=== PATIENT | male | born 1975 | race African-American/Black ===

== ENCOUNTER 2017-02-08 18:10 | Emergency (ER) | payer OTHER, BC ==
[2017-02-08 18:27] VITALS: BP 133/93; PULSE 76; TEMP 97.8; BMI 23.0
[2017-02-08] MEDS ORDERED: IBUPROFEN 600 MG TABLET (FP) PO ONE ×2 (18:59→19:01)
--- NOTE | 2017-02-08 19:04 | PDOC ---
History of Present Illness - General Chief Complaint: Pain, Acute Stated Complaint: FOOT INJURY Time Seen by Provider: 02/08/17 18:52 History Source: Patient Exam Limitations: No Limitations - History of Present Illness Initial Comments: Patient came for evaluation of swelling and tender lump to the plantar aspect of his left foot. 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 wears supportive shoes and is uncertain as to cause Occurred: reports: last week Severity: reports: mild Pain Location: reports: lower extremity (left plantar foot ) Method of Injury: Yes: unknown Modifying Factors: improves with: None Past History - Past Medical History Allergies/Adverse Reactions: Allergies Allergy/AdvReac Type Severity Reaction Status Date / Time No Known Allergies Allergy Verified 02/08/17 18:23 Home Medications: Ambulatory Orders Aspirin [ASA -] 325 mg PO ONCE 02/08/17 COPD: No DVT: No - Immunization History Immunization Up to Date: Yes - Suicide/Smoking/Psychosocial Hx Smoking History: Current some day smoker Number of Cigarettes Smoked Daily: 1 Cigars Per Day: 3 Information on smoking cessation initiated: No Hx Alcohol Use: No Drug/Substance Use Hx: No Substance Use Type: Alcohol *Physical Exam - Vital Signs Last Vital Signs Temp Pulse Resp BP Pulse Ox 97.8 F 76 16 133/93 99 02/08/17 18:23 02/08/17 18:23 02/08/17 18:23 02/08/17 18:23 02/08/17 18:23 - Physical Exam General Appearance: Yes: Nourished, Appropriately Dressed, Apparent Distress, Mild Distress HEENT: positive: MARY CARMEN, Normal ENT Inspection, TMs Normal, Pharynx Normal Musculoskeletal: positive: Normal Inspection. negative: Vertebral Tenderness Extremity: positive: Normal Capillary Refill, Other (tender soft 1 cm mass to the plantar aspect of left midfoot along the third metatarsal, consistent with Boateng's neuroma. Has full range of motion toes and neurovascular intact). 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 - Discharge Dispostion Disposition: HOME Condition at time of disposition: Stable Admit: No - Referrals Referrals: Bong Christensen [Primary Care Provider] - Suresh Hernandez MD [Staff Physician] - - Patient Instructions Printed Discharge Instructions: Kilo's Neuroma Additional Instructions: Rest, ice to area on and off for 15 minutes 4-6 times a day Avoid heavy lifting or exercise until pain and swelling is resolved or until further directed Keep area highly elevated to reduce swelling Use splints/Yeison wrap as directed Followup with orthopedist in one to 2 days if not improving, if significantly improved may wait one week for followup with orthopedist May use ibuprofen 2-200 mg tablets every 6 hours as needed for pain 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
== END 2017-02-08 19:31 | disposition home or self-care (01) ==
LOC: JERFT 18:10
DX: G57.62 Lesion of plantar nerve, left lower limb (principal)
CPT/HCPCS: 99281-25

== ENCOUNTER 2017-03-29 23:23 | Emergency (ER) | payer OTHER, BC ==
[2017-03-30] MEDS ORDERED: ACETAMINOPHEN 500 MG TABLET (FP) PO ONE (00:04)
[2017-03-30] MEDS ORDERED: cloNIDine HCL 0.1 MG TABLET PO ONE (00:04)
[2017-03-30] MEDS ORDERED: ACETAMINOPHEN 325 MG TABLET (FP) ONE (00:10)
[2017-03-30] MEDS ORDERED: cloNIDine HCL 0.1 MG TABLET ONE (00:10)
--- NOTE | 2017-03-30 00:10 | PDOC ---
History of Present Illness - General History Source: Patient Exam Limitations: No Limitations - History of Present Illness Initial Comments: 03/30/17 00:50 The patient is a 42 year old male with no significant past medical history who presents to the ED with elevated blood pressure for one day. The patient reports a headache since yesterday. He states he checked his blood pressure today and it was 160/80. Denies fever or chills. Denies chest pain or shortness of breath. Denies abdominal pain, nausea, vomiting, or diarrhea. Denies any other symptoms. Family hx: The patients mother has diabetes and the patients father has a history of [place]. Social hx: The patient works as a [employer] josemanuel and regularly drinks and smokes. <Abdi Knight - Last Filed: 03/30/17 00:50> <Yulia Mckeon - Last Filed: 03/30/17 01:22> - General Chief Complaint: Blood Pressure Problem Stated Complaint: BLOOD PRESSURE Time Seen by Provider: 03/29/17 23:52 Past History <Abdi Knight - Last Filed: 03/30/17 00:50> - Past Medical History COPD: No DVT: No - Immunization History Immunization Up to Date: Yes - Suicide/Smoking/Psychosocial Hx Smoking History: Unknown if ever smoked Have you smoked in the past 12 months: No Number of Cigarettes Smoked Daily: 1 Cigars Per Day: 3 Information on smoking cessation initiated: No Hx Alcohol Use: No Drug/Substance Use Hx: No Substance Use Type: Alcohol <Yulia Mckeon - Last Filed: 03/30/17 01:22> - Past Medical History Allergies/Adverse Reactions: Allergies Allergy/AdvReac Type Severity Reaction Status Date / Time No Known Allergies Allergy Verified 03/29/17 23:55 Home Medications: Ambulatory Orders Aspirin [ASA -] 325 mg PO ONCE 02/08/17 Amlodipine Besylate [Norvasc -] 5 mg PO DAILY #30 tablet 03/30/17 Review of Systems - Review of Systems Able to Perform ROS?: Yes Comments:: 03/30/17 00:51 CONSTITUTIONAL: Absent: fever, chills, diaphoresis, generalized weakness, malaise, loss of appetite HEENT: Absent: rhinorrhea, nasal congestion, throat pain, throat swelling, difficulty swallowing, mouth swelling, ear pain, eye pain, visual Changes CARDIOVASCULAR: + high blood pressure Absent: chest pain, syncope, palpitations, lightheadedness, peripheral edema RESPIRATORY: Absent: cough, shortness of breath, dyspnea with exertion, orthopnea, wheezing, stridor, hemoptysis GASTROINTESTINAL: Absent: abdominal pain, abdominal distension, nausea, vomiting, diarrhea, constipation, melena, hematochezia GENITOURINARY: Absent: dysuria, frequency, urgency, hesitancy, hematuria, flank pain, genital pain MUSCULOSKELETAL: Absent: myalgia, arthralgia, joint swelling SKIN: Absent: rash, itching, pallor HEMATOLOGIC/IMMUNOLOGIC: Absent: easy bleeding, easy bruising, lymphadenopathy, frequent infections ENDOCRINE: Absent: unexplained weight gain, unexplained weight loss, heat intolerance, cold intolerance NEUROLOGIC: + headache Absent:focal weakness or paresthesias, dizziness, unsteady gait, seizure, mental status changes, bladder or bowel incontinence PSYCHIATRIC: Absent: anxiety, depression, suicidal or homicidal ideation, hallucinations. All Other Systems: Reviewed and Negative <Abdi Knight - Last Filed: 03/30/17 00:50> *Physical Exam - Vital Signs Last Vital Signs Temp Pulse Resp BP Pulse Ox 74 14 159/104 100 03/29/17 23:55 03/29/17 23:55 03/29/17 23:55 03/29/17 23:55 - Physical Exam Comments: 03/30/17 00:51 GENERAL: Well developed, well nourished. Awake and alert. No acute distress. HEENT: Normocephalic, atraumatic. PERRLA, EOMI. No conjunctival pallor. Sclera are non- icteric. Moist mucous membranes. Oropharynx is clear. NECK: Supple. Full ROM. No JVD. Carotid pulses 2+ and symmetric, without bruits. No thyromegaly. NCo lymphadenopathy. CARDIOVASCULAR: Regular rate and rhythm. No murmurs, rubs, or gallops. Distal pulses are 2+ and symmetric. PULMONARY: No evidence of respiratory distress. Lungs clear to auscultation bilaterally. No wheezing, rales or rhonchi. ABDOMINAL: Soft. Non-tender. Non-distended. No rebound or guarding. No organomegaly. Normoactive bowel sounds. MUSCULOSKELETAL Normal range of motion at all joints. No bony deformities or tenderness. No CVA tenderness. EXTREMITIES: No cyanosis. No clubbing. No edema. No calf tenderness. SKIN: Warm and dry. Normal capillary refill. No rashes. No jaundice. NEUROLOGICAL: Alert, awake, appropriate. Cranial nerves 2-12 intact. No deficits to light touch and temperature in face, upper extremities and lower extremities. No motor deficits in the in face, upper extremities and lower extremities. Normoreflexic in the upper and lower extremities. Normal speech. Toes are down- going bilaterally. Gait is normal without ataxia. PSYCHIATRIC: Cooperative. Good eye contact. Appropriate mood and affect. <Abdi Knight - Last Filed: 03/30/17 00:50> - Vital Signs Last Vital Signs Temp Pulse Resp BP Pulse Ox 74 14 159/104 100 03/29/17 23:55 03/29/17 23:55 03/29/17 23:55 03/29/17 23:55 <Yulia Mckeon - Last Filed: 03/30/17 01:22> Heart Score/ECG Review - Electrocardiogram EKG: Normal - Age Age: </= 45 - Risk Factors Risk Factors Heart Score: Yes Hx Hypertension - ECG Intrepretation Rhythm: Regular Rhythm - P and VT Prominent R with upright T in V1 (true posterior [place]): No Delta Wave(s) Present: No WPW: No - QRS Poor R Wave Progression: No Q Wave Present: No - ST and T Early Repolarization: No Non Specific ST-T Wave changes: No Flattened T Waves: No Prolonged Q-T Interval: No - ECG Impressions Normal ECG: Yes Non-specific ST Elevation: No Ischemic Changes: No Bradycardia: No Heart Block: 1st Degree Block(>20mils) Torsades meredith Pointes: No WPW: No <Yulia Mckeon - Last Filed: 03/30/17 01:22> ED Treatment Course - Medications Given in the ED: ED Medications Discontinued Medications Generic Name Dose Route Start Last Admin Trade Name Miguel Angel PRN Reason Stop Dose Admin Acetaminophen 975 mg 03/30/17 00:04 03/30/17 00:32 Tylenol - PO 03/30/17 00:05 Not Given ONCE ONE Clonidine 0.1 mg 03/30/17 00:04 03/30/17 00:22 Catapres - PO 03/30/17 00:05 0.1 mg ONCE ONE Administration <Abdi Knight - Last Filed: 03/30/17 00:50> Medical Decision Making - Medical Decision Making 03/30/17 00 42 yo male brought in to ER by significant other because she took his blood pressure at home and it was elevated -he DENIES chest pain,headache,shortness of breath -ekg sinus rhythm @ 65 bpm, first degree AV block , LVH no priors for comparison -RX norvasc -pt told to please see his PCP and have further eval and treatment of his HTN 03/30/17 01:21 <Yulia Mckeon - Last Filed: 03/30/17 01:22> *DC/Admit/Observation/Transfer - Attestations Scribe Attestion: 03/30/17 00:51 Documentation prepared by Abdi Knight, acting as medical clerical assistant for Yulia Mckeon MD <Abdi Knight - Last Filed: 03/30/17 00:50> <Yulia Mckeon - Last Filed: 03/30/17 01:22> Diagnosis at time of Disposition: Elevated blood pressure reading - Discharge Dispostion Disposition: HOME Condition at time of disposition: Stable - Prescriptions Prescriptions: Amlodipine Besylate [Norvasc -] 5 mg PO DAILY #30 tablet - Patient Instructions Printed Discharge Instructions: DI for High Blood Pressure Additional Instructions: Please follow up with your regular physician Please up your blood pressure medicine prescription at your pharmacy
[2017-03-30 00:15] VITALS: BMI 23.1
[2017-03-30 01:41] VITALS: BP 126/88; PULSE 73
--- NOTE | 2017-03-30 10:28 | EKG ---
Test Reason : Blood Pressure : / mmHG Vent. Rate : 065 BPM Atrial Rate : 065 BPM P-R Int : 210 ms QRS Dur : 092 ms QT Int : 386 ms P-R-T Axes : 071 062 058 degrees QTc Int : 401 ms SINUS RHYTHM WITH 1ST DEGREE A-V BLOCK MINIMAL VOLTAGE CRITERIA FOR LVH, MAY BE NORMAL VARIANT BORDERLINE ECG WHEN COMPARED WITH ECG OF 03-NOV-2006 16:55, NO SIGNIFICANT CHANGE WAS FOUND Confirmed by BELLA ASHTON MD ([id number]) on 03/30/2017 10:28:07 AM Referred By: Confirmed By:BELLA ASHTON MD
== END 2017-03-30 01:49 | disposition home or self-care (01) ==
LOC: JER 23:23
DX: I10 Essential (primary) hypertension (principal)
CPT/HCPCS: 93005; 93010; 99281-25

== ENCOUNTER 2019-09-11 18:49 | Emergency (ER) | payer BC, OTHER ==
[2019-09-11 18:56] VITALS: TEMP 98.5; BMI 23.6
--- NOTE | 2019-09-11 18:58 | PDOC ---
Rapid Medical Evaluation Chief Complaint: CVA/TIA Time Seen by Provider: 09/11/19 18:53 Medical Evaluation: Allergies Allergy/AdvReac Type Severity Reaction Status Date / Time No Known Allergies Allergy Verified 09/11/19 18:51 09/11/19 18:53 Pt presents for evaluation of R arm numbness and "closing up" for the past 40 minutes. He states he had two episodes lasted a few seconds and then resolved. He states he still has a little residual numbness in the R arm. States the episodes started after an argument with his . Pt is R handed. Pt endorses drinking every day, however last drink was Thursday Exam: strength intact b/l, No gross neuro deficits Orders: labs, IVF Pt to proceed to the ER for further evaluation Discharge Disposition - Diagnosis Hand numbness - Referrals - Patient Instructions - Post Discharge Activity
[2019-09-11 19:34] LABS: BASO % 0.5 % (0-2.0); EOS % 0.7 % (0-4.5); HEMATOCRIT 40.6 % (35.4-49); HEMOGLOBIN 13.3 GM/dL (11.7-16.9); LYMPH % 36.7 % (8-40); MCH 28.1 pg (25.7-33.7); MCHC 32.6 g/dl (32.0-35.9); MEAN CELL VOLUME 86.1 fl (80-96); MEAN PLT VOLUME 7.1 fl (7.5-11.1); MONO % 16.5 % (3.8-10.2); NEUT % 45.6 % (42.8-82.8); PLATELET COUNT 212 K/MM3 (134-434); RBC 4.72 M/mm3 (4.00-5.60); RDW 13.9 % (11.9-15.9); WHITE BLOOD COUNT 4.5 K/mm3 (4.0-10.0)
[2019-09-11 19:42] LABS: INR 1.07 (0.83-1.09); PROTHROMBIN TIME (PATIENT) 12.6 SEC (9.7-13.0)
--- NOTE | 2019-09-11 20:02 | PDOC ---
History of Present Illness - General Chief Complaint: CVA/TIA Stated Complaint: WEAKNESS Time Seen by Provider: 09/11/19 18:53 - History of Present Illness Initial Comments: 09/11/19 20:02 HPI: 44 y/o M with no pmh presenting with right arm sensation change and 1st-3rd fingers "closing up." He reports 2 episodes today. First one occurred while he was driving and on the phone with his and he was feeling stressed. 2nd epis ode happened without triggers. He reports episodes in the past which self resolved. 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 His symptoms have currently completely resolved. He denies fever, HARRISON, LH, chest pain, SOB, palp, abd pain, n/v, diaphoresis. PMHx: as noted above ROS: as noted SHx: Denies tobacco use; +alcohol use; no rec drugs Allergies: NKDA ROS: GENERAL/CONSTITUTIONAL: No fever or chills. No weakness. HEAD, EYES, EARS, NOSE AND THROAT: No change in vision. No ear pain or discharge. No sore throat. CARDIOVASCULAR: No chest pain or shortness of breath RESPIRATORY: No cough, wheezing, or hemoptysis. GASTROINTESTINAL: No nausea, vomiting, diarrhea or constipation. GENITOURINARY: No dysuria, frequency, or change in urination. MUSCULOSKELETAL: +right hand spasm SKIN: No rash NEUROLOGIC: No headache, vertigo, loss of consciousness, or change in strength/sensation. ENDOCRINE: No increased thirst. No abnormal weight change HEMATOLOGIC/LYMPHATIC: No anemia, easy bleeding, or history of blood clots. ALLERGIC/IMMUNOLOGIC: No hives or skin allergy. PE: GENERAL: Awake, alert, and fully oriented, no acute distress HEAD: No signs of trauma, normocephalic, atraumatic EYES: EOMI, sclera anicteric, conjunctiva clear ENT: Auricles normal inspection, hearing grossly normal, nares patent, oropharynx clear without exudates. Moist mucosa NECK: Normal ROM, no lymphadenopathy LUNGS: No increased work of breathing, symmetrical chest rise, clear to auscultation bilaterally, no wheezes, crackles or rhonchi HEART: Regular rate, regular rhythm, normal S1 and S2, no murmur, peripheral pulses 2+ and equal bilaterally. ABDOMEN: Soft, nondistended, nontender. No guarding, no rebound. No masses. No CVAT MUSCULOSKELETAL: FROM NEUROLOGICAL: Cranial nerves II through XII grossly intact. Normal speech, normal gait, no focal sensorimotor deficits, no ataxia, negative tinnel sign SKIN: Warm, Dry, normal turgor, no rashes or lesions noted Past History - Medical History Allergies/Adverse Reactions: Allergies Allergy/AdvReac Type Severity Reaction Status Date / Time No Known Allergies Allergy Verified 09/11/19 18:51 Home Medications: Ambulatory Orders NK [No Known Home Medication] 09/11/19 COPD: No DVT: No HTN: Yes - Immunization History Immunization Up to Date: Yes - Psycho-Social/Smoking History Smoking History: Current every day smoker Have you smoked in the past 12 months: No Number of Cigarettes Smoked Daily: 8 Cigars Per Day: 3 Information on smoking cessation initiated: Yes - Substance Abuse Hx (Audit-C & DAST Scrn) Number of drinks the patient has on a typical day: 3 or 4 Score: In Men: 4 or > Positive; In Women: 3 or > Positive: 1 Screen Result (Pos requires Nsg. Audit-10AR): Negative In the last yr the pt used illegal drug/Rx for NonMed reason: No Score: Yes response is considered Positive: 0 Screen Result (Positive result requires Nsg. DAST-10): Negative *Physical Exam - Vital Signs Last Vital Signs Temp Pulse Resp BP Pulse Ox 98.5 F 92 H 20 164/109 H 99 09/11/19 18:51 09/11/19 18:51 09/11/19 18:51 09/11/19 18:51 09/11/19 18:51 ED Treatment Course - LABORATORY CBC & Chemistry Diagram: 09/11/19 19:23 09/11/19 19:23 - ADDITIONAL ORDERS Additional order review: Laboratory Results 09/11/19 09/11/19 19:23 19:23 WBC 4.5 RBC 4.72 Hgb 13.3 Hct 40.6 MCV 86.1 MCH 28.1 MCHC 32.6 RDW 13.9 Plt Count 212 MPV 7.1 L Absolute Neuts (auto) 2.0 Neutrophils % 45.6 Lymphocytes % 36.7 Monocytes % 16.5 H Eosinophils % 0.7 Basophils % 0.5 Nucleated RBC % 0 PT with INR 12.60 INR 1.07 09/11/19 19:23 RBC 4.72 MCV 86.1 MCHC 32.6 RDW 13.9 MPV 7.1 L Neutrophils % 45.6 Lymphocytes % 36.7 Monocytes % 16.5 H Eosinophils % 0.7 Basophils % 0.5 Medical Decision Making - Medical Decision Making 09/11/19 20:45 44 y/o M with no pmh presenting with right arm sensation change and 1st-3rd fi ngers "closing up." VSS, AF. Pe unremarkable. DDx includes trigger finger, radial tunnel syndrome, radial nerve palsy, r/o acs -cbc, cmp, card prof, ekg 09/11/19 20:46 labs wnl ekg without evidence of ischemia reassured patient that symptoms due to radial nerve irritation; ortho referral and DCd; all questions asnwered Discharge - Discharge Information Problems reviewed: Yes Clinical Impression/Diagnosis: Hand numbness Condition: Stable Disposition: HOME - Follow up/Referral Referrals: Jayden Selby [Primary Care Provider] - Jam Carrion MD [Staff Physician] - Perry Vidal MD [Staff Physician] - - Patient Discharge Instructions Patient Printed Discharge Instructions: DI for Radial Tunnel Syndrome Additional Instructions: Additional Instructions: Please return to the emergency department with any new or worsening symptoms or concerns including. We have provided referrals to an orthopedic surgeon (Dr Carrion and Dr Vidal) to evaluate your hand for further management - Post Discharge Activity
[2019-09-11 20:21] LABS: ALBUMIN 4.1 g/dl (3.4-5.0); BILIRUBIN,TOTAL 0.4 mg/dL (0.2-1); BLOOD UREA NITROGEN 14.8 mg/dL (7-18); CALCIUM 8.8 mg/dL (8.5-10.1); MAGNESIUM 1.9 mg/dL (1.8-2.4); POTASSIUM 3.9 mmol/L (3.5-5.1); TOT PROT 7.9 g/dl (6.4-8.2)
--- NOTE | 2019-09-11 20:44 | PDOC ---
Documentation entered by Kim Upton SCRIBE, acting as scribe for Rima Doizer MD. Rima Dozier MD: This documentation has been prepared by the scribe, Kim Upton SCRIBE, under my direction and personally reviewed by me in its entirety. I confirm that the documentation accurately reflects all work, treatment, procedures, and medical decision making performed by me. Attending Attestation - Resident Resident Name: TarunSp - ED Attending Attestation I have performed the following: I have examined & evaluated the patient, The case was reviewed & discussed with the resident, I agree w/resident's findings & plan, Exceptions are as noted - HPI HPI: 44 yo M presents with R forearm numbness, 1st through 3rd fingers caught in a claw position. This occurred twice today, no known inciting event. He state it occurred previously, self-limited. Currently asymptomatic. - Physicial Exam PE: GENERAL: Awake, alert, and fully oriented, in no acute distress HEAD: No signs of trauma EYES: PERRLA, EOMI, sclera anicteric, conjunctiva clear ENT: Auricles normal inspection, hearing grossly normal, nares patent, oropharynx clear without exudates. Moist mucosa NECK: Normal ROM, supple, no lymphadenopathy, JVD, or masses LUNGS: Breath sounds equal, clear to auscultation bilaterally. No wheezes, and no crackles HEART: Regular rate and rhythm, normal S1 and S2, no murmurs, rubs or gallops ABDOMEN: Soft, nontender, normoactive bowel sounds. No guarding, no rebound. No masses EXTREMITIES: Normal range of motion, no edema. No clubbing or cyanosis. No cords, erythema, or tenderness NEUROLOGICAL: Cranial nerves II through XII grossly intact. Normal speech, normal gait. Motor and sensation intact SKIN: Warm, dry, normal turgor, no rashes or lesions noted. - Medical Decision Making 09/11/19 20:38 Pt with self-limited contracture of his R hand, first through third fingers, +associated tingling. This may be a nerve entrapment, as it has intermittently occurred in the past, limited to peripheral nerve distribution. Electrolytes are normal. Will refer to ortho hand as an outpatient. Discharge - Discharge Information Problems reviewed: Yes Clinical Impression/Diagnosis: Hand numbness Condition: Stable Disposition: HOME - Follow up/Referral Referrals: Perry Vidal MD [Staff Physician] - Jam Carrion MD [Staff Physician] - Jayden Selby [Primary Care Provider] - - Patient Discharge Instructions Patient Printed Discharge Instructions: DI for Radial Tunnel Syndrome Additional Instructions: Additional Instructions: Please return to the emergency department with any new or worsening symptoms or concerns including. We have provided referrals to an orthopedic surgeon (Dr Carrion and Dr Vidal) to evaluate your hand for further management - Post Discharge Activity
[2019-09-11 20:46] VITALS: BP 167/105; PULSE 79
--- NOTE | 2019-09-12 09:17 | EKG ---
Test Reason : Blood Pressure : / mmHG Vent. Rate : 078 BPM Atrial Rate : 078 BPM P-R Int : 202 ms QRS Dur : 086 ms QT Int : 354 ms P-R-T Axes : 071 031 042 degrees QTc Int : 403 ms NORMAL SINUS RHYTHM MINIMAL VOLTAGE CRITERIA FOR LVH, MAY BE NORMAL VARIANT ABNORMAL ECG WHEN COMPARED WITH ECG OF 30-MAR-2017 00:15, NO SIGNIFICANT CHANGE WAS FOUND Confirmed by BRANDIE LEI MD ([id number]) on 09/12/2019 9:17:25 AM Referred By: Confirmed By:BRANDIE LEI MD
== END 2019-09-11 20:50 | disposition home or self-care (01) ==
LOC: JER 18:49
DX: R20.2 Paresthesia of skin (principal)
CPT/HCPCS: 36415; 80053; 83735; 85025; 85610; 93005; 93010; 99284-25